=== PATIENT | male | born 1985 | race Caucasian/White ===

== ENCOUNTER 2016-06-07 12:58 | Emergency (ER) | payer MEDICAID, OTHER ==
[~2016-06-07] VITALS: Wt 63.0 kg
[2016-06-07] MEDS ORDERED: KETOROLAC 30 MG INJ IM STA (14:01)
--- NOTE | 2016-06-07 14:01 | ERD ---
ER Documentation Chief Complaint Date/Time DATE: 06/07/16 TIME: 13:45 Chief Complaint LOW BACK PAIN NON TRAUMATIC. LIFTING SOMETHING 3 DAYS AGO HPI 30 y/o male presents to ED for mid back pain to lower back pain. Pain was described as throbbing that radiates to bilateral lower legs with pain rate of 7 /10 at this time. Pain is worse on range of motion. Stated it started last Tuesday while he was lifting a heavy box. Denies headache, loss of consciousness, dizziness, blurry vision, changes in vision, photophobia, facial pain, ear pain, throat pain, difficulty swallowing, neck pain, shoulder pain, chest pain, cough, hemoptysis, abdominal pain, loss of appetite, nausea, vomiting, hematochezia, diarrhea, constipation, urinary symptoms, bladder and bowel incontinences, extremity weakness, extremity tenderness, numbness or tingling sensation, difficulty walking, recent travel, recent exposure to illness, recent antibiotic use in the last 3 months, fever, chills. Allergy: NKA PMH: Denies. Medications: Denies. Surgery: Denies. Family history: Denies. Primary Social History: Works at a factory lifting boxes. Denies smoking, use of alcohol, use of illegal drugs. ROS All systems reviewed and are negative except as per history of present illness. Allergies Allergies: Coded Allergies: No Known Allergy (Unverified , 06/07/16) Physical Exam Vitals Vital Signs Date Time Temp Pulse Resp B/P Pulse Ox O2 Delivery O2 Flow Rate FiO2 06/07/16 13:02 98.5 112 20 168/71 98 Physical Exam CONSTITUTIONAL: Well-appearing; well-nourished; in no apparent distress. HEAD: Normocephalic; atraumatic. EYES: Conjunctiva clear, sclera non-icteric, EOM intact. PERRL Ears: Hearing intact. EACs clear, TMs non-bulging, non-inflamed, translucent & mobile, ossicles normal appearance, No obstructions, no erythema, no discharges Nose: No obstructions. No polyps. No external lesions. Mucosa non-inflamed. No external lesions, septum and turbinates normal. No rhinorrhea. No discharges. Frontal sinus is non-tender to palpation. Maxillary sinus is non-tender to palpation. MOUTH: Moist mucous membranes, no lesion, no obstructions, no vesicles, no thrush, patent airway Throat: Uvula in midline. Right tonsil is +1 with no erythema, no exudate. Left tonsil is +1 with no erythema, no exudate. Tolerating secretions well. Good gag reflex. Patent airway. Neck: Supple, without lesions, bruits, or adenopathy. No mass. Thyroid non- enlarged and non-tender to palpation. CHEST: Symmetrical chest. Respirations even and not labored. No retractions noted. CARDIOVASCULAR: Normal S1, S2. RRR. No murmurs, gallops. RESPIRATORY: Normal chest excursion with respiration; breath sounds clear and equal bilaterally; no wheezes, rhonchi, or rales. Breathing even and unlabored. Speaking in clear, full, and complete sentences w/ ease. ABDOMEN: Normal bowel sounds normal. Soft, round, non-distended, non-guarding, no tenderness, no rebound, no organomegaly, no masses, no pulsating abdominal mass. No hernia. No peritoneal signs. : No CVA tenderness. BACK: Symmetrical shoulder. Spine is midline without deformity, tenderness. No evidence of trauma or deformity. PELVIS: Stable pelvis. No evidence of trauma or deformity. MUSCULOSKELETAL: Normal gait and station. No misalignment, asymmetry, crepitation, defects, tenderness, masses, effusions, decreased range of motion, instability, atrophy or abnormal strength or tone in the head, neck, spine, ribs , pelvis or extremities. Tenderness to T12 and L1 . Pain and tenderness to T12 and L1 on range of motion of the spine. Positive straight leg test to bilateral lower extremities. Circulation and sensation is intact. No neurovascular deficits. No calf tenderness. NEUROVASCULAR: Distal pulses are present. Pedal pulse are present, equal, and normal. Capillary refills are < 2 seconds. NEUROLOGIC: Alert and oriented x4. Speaks full and clear sentences. Cranial Nerves II-XII normal. Sensation to pain, touch, and proprioception normal. Grossly unremarkable. No neurologic deficits. Romberg test is negative. PSYCHOLOGICAL: The patients mood and manner are appropriate. No hallucinations , delusions. Not SI. Not HI. Has the capacity to decide for self SKIN: Normal for age and ethnicity; warm; dry; good turgor; no apparent lesions or exudates. No rashes, hives, discoloration. Intact. Results 24 hrs Current Medications Medications (Trade) Dose Ordered Sig/Hafsa Route PRN Reason Start Time Stop Time Status Last Admin Dose Admin Ketorolac Tromethamine (Toradol) 30 mg ONCE STAT IM 06/07/16 14:01 06/07/16 14:03 DC 06/07/16 14:50 Procedures/MDM Examination: Please see physical examination. Disease process, medical treatment was explained to the patient and family member. They verbalized understanding and agreed with the diagnostic tests, medical treatment, and follow-up care. Radiology: Thoracic spine: Unremarkable examination. Lumbar spine: Mild dextroscoliosis. Otherwise unremarkable examination. Treatment: Toradol IM. Re-evaluation: Relieve the pain. No neurovascular deficits. No neurological deficits. Consultation: None. Differential diagnosis: Fracture versus contusion versus sprain versus lumbar strain versus lower back pain Medical decision [id number] y/o male presents to ED for mid back pain to lower back pain. Pain was described as throbbing that radiates to bilateral lower legs with pain rate of 7/10 at this time. Pain is worse on range of motion. Stated it started last Tuesday while he was lifting a heavy box. Patient's complaint, patient's history, my physical findings, diagnostic test results are consistent with my final diagnosis of low back pain. Medications prescribed are the following: Motrin. Flexeril. Patient and family member are made aware of the side effects and adverse reactions of the medications prescribed. Instructed on when to seek emergent and medical attention in case allergic/anaphylactic reactions or severe side effects and or adverse reactions to medications. Patient and family member verbalized understanding. Patient instructed Instructed to follow-up with his PCP in 24-48 hours. Instructed to Call 911 for chest pain, shortness of breath. Advised to come back here in ED as soon as possible for severity of symptoms which includes but not limited to: any new symptoms; shortness of breath/difficulty of breathing; cardiovascular changes; severe gastrointestinal symptoms; signs and symptoms of bleeding and or infection; signs of compartment syndrome/neurovascular changes; neurological changes/deficits. Patient and family member verbalized understanding. Upon discharge, patient is alert and oriented x 4, speaks full and clear sentences, denies pain, has no neurological deficits, has no neurovascular deficits, difficulty of breathing. Breathing even and unlabored. Lung sounds are clear to auscultation. Not in distress. Appears comfortable. Ambulatory with steady gait. Appears satisfied with care provided here in ED. Departure Diagnosis: Primary Impression: Back pain Back pain location: low back pain Back pain laterality: bilateral Sciatica presence: with sciatica Sciatica laterality: bilateral sciatica Condition: Good Additional Instructions: Follow-up with PCP in the next 24-48 hours. JANUARY CARR Jun 07, 2016 14:01
--- NOTE | 2016-06-07 14:42 | RADRPT ---
PROCEDURE: XR Lumbar Spine. CLINICAL INDICATION: Low back pain. TECHNIQUE: 3 views of the lumbar spine available for review COMPARISON: None available FINDINGS: There is a mild dextroscoliosis of the lumbar spine. There is normal mineralization, architecture and alignment. No fractures or osseous lesions are ivon ntified. No subluxation is identified. The disk spaces are unremarkable. The facet joints are unr emarkable. The soft tissues are unremarkable. IMPRESSION: Mild dextroscoliosis Otherwise unremarkable examination. RPTAT: HGDB .Gomez Vaughn MD, MD Date Time Electronically viewed and signed by .Gomez Vaughn MD, on 06/07/2016 14:41 .B/
--- NOTE | 2016-06-07 14:42 | RADRPT ---
PROCEDURE: XR thoracic spine. CLINICAL INDICATION: Back pain TECHNIQUE: AP and lateral radiographs of the thoracic spine are available for review. COMPARISON: None. FINDINGS: . The thoracic spine is normal in mineralization, architecture and alignment. No fractures or osseous lesions are identified. The disk spaces are unremarkable. The soft tissues are unremarkable. IMPRESSION: Unremarkable examination. RPTAT: HGDB .Gomez Vaughn MD, MD Date Time Electronically viewed and signed by .Gomez Vaughn MD, on 06/07/2016 14:42 .B/
[2016-06-07] MEDS ORDERED: IBUP-1542 PO (15:20)
[2016-06-07] MEDS ORDERED: CYCL-319 PO (15:20)
== END 2016-06-07 15:25 | disposition home or self-care (01) ==
LOC: FTE 12:58
DX: M54.42 Lumbago with sciatica, left side (principal); M54.41 Lumbago with sciatica, right side
CPT/HCPCS: 72072; 72100; 96372; J1885; Z7502